=== PATIENT | male | born 1995 | race Caucasian/White ===

== ENCOUNTER 2018-07-11 21:32 | Emergency (ER) | payer OTHER, SELFPAY ==
[2018-07-11 21:34] VITALS: BP 137/90; PULSE 107; RESP 18; TEMP 37; O2SAT 99; BMI 43.9
--- NOTE | 2018-07-11 21:48 | CT_ITS ---
STUDY: CT BRAIN WITHOUT CONTRAST REASON FOR EXAM: Male, 23 years old. Dizziness and fall. RADIATION DOSAGE (If Supplied By Facility): CTDIvol = ( 44.99 ) mGy, DLP = ( 745.49 ) mGycm TECHNIQUE: Transaxial CT imaging of the brain was performed without administration of intravenous contrast material. Individualized dose optimization techniques were used for this CT. COMPARISON: None. FINDINGS: Normal soft tissue structures. Normal calvarium. Within the right frontal lobe there is a well-circumscribed low-attenuation 1.2 x 1.2 x 1.1 cm rounded focus. Normal size ventricles and extra-axial spaces for the patient's age. Normal white matter tracts of the cerebral hemispheres. Normal basal ganglia and thalami. Normal brainstem. Normal cerebellum. There is no intracranial hemorrhage. There are no findings of an acute ischemic infarction. Normal visualized paranasal sinuses. There is opacification of the left mastoid air cells. CT/Brain/Head without Contrast IMPRESSION: No acute intracranial process. 1.2 x 1.2 x 1.1 cm round low-attenuation focus within the right frontal lobe which may reflect an intracranial lipoma, consider MRI for further characterization. Opacification of the left mastoid air cells consistent with a history of mastoiditis. Electronically Signed: Anette Ibarra MD at 22:47 EST Tel , Service support ,
--- NOTE | 2018-07-11 21:49 | ED.VISSUMM ---
- ER Visit Summary Date of Service: 07/11/18 Chief Complaint: Dizziness, lightheaded, fall History of Present Illness: The patient is a 23 M with history of Down syndrome presents to the emergency department with approximately 24 hours of dizziness. The patient describes a sensation of motion that is worse when he moves his head. He states that he felt unsteady on his feet. Today, he changed positions and fell. He struck the back of his head but did not lose consciousness. Since that time, he has had a mild headache. He has never had symptoms like this before. He denies any chest pain. He denies any recent upper respiratory illness. The patient is otherwise healthy. He takes no daily medications. He has no history of seizure. There is no history of stroke. Physical Examination: Vital signs reviewed General: Well-nourished, well-developed Head: Normocephalic, atraumatic Eyes: Pupils equal and reactive, extraocular muscles intact Neck, supple, no lymphadenopathy Heart: Regular rate and rhythm Respiratory: No distress, clear bilaterally Abdomen: Soft, nontender, nondistended, no peritoneal signs Back: Nontender Extremities: Nontender, no edema, no cords Skin: Normal color no rash Neuro: Alert and oriented, no focal or lateralizing deficits, rapid beating nystagmus bilaterally that does extinguish, no difficulties with cerebellar activities Test Results: [] Emergency Department Course and Treatment: The patient presents with vertigo. He has no mastoid tenderness. His TMs are clear bilaterally. He was given IV fluids and meclizine. He had marked improvement of his symptoms. Screening labs are obtained were unremarkable. With the patient's history of Down syndrome, I did obtain a CT of his head. There is questionable lipoma, but no acute process. I do feel that this is more likely chronic. There is also question of mastoiditis but if anything, I do feel that this is chronic as he has had no evidence of ear infection and no tenderness. He does have evidence of infection on the right, but this is red on the left. He will be started on Augmentin. At this time, with the patient's improvement I do feel that he is safe for outpatient follow-up. He will be prescribed meclizine. He was counseled on concerning symptoms and reasons to return. The patient will be discharged home. Treatment Plan: [] Disposition: Discharge Impression: Vertigo This note was generated with [employer] dictation software. It may contain incorrect words, spelling, and punctuation that were not noted in review of the chart prior to signing ED Disposition - Plan for ED Patient: Chief Complaint: Fall Instructions: ED Vertigo Unspecified Prescriptions: Amox/Clavulanate Tablet [Augmentin Tablet] 875 mg PO Q12H #20 tab Meclizine HCl [Antivert] 25 mg PO TID PRN PRN #30 tab PRN Reason: Dizziness Referrals: [facility] Doctor,Out of [NON-STAFF] -
[2018-07-11 21:58] VITALS: PULSE 118; RESP 18; O2SAT 100
[2018-07-11] MEDS: Meclizine HCl 25 MG Tablet PO (22:01)
[2018-07-11] MEDS: Ondansetron 4 MG/2 ML Vial IV (22:08)
[2018-07-11] MEDS: 0.9% Normal Saline 1,000 ML 1000 ML IV (22:08)
[2018-07-11 22:24] LABS: Absolute Neutrophil Count 6.6 X10^3/uL (2.0-7.7); Basophil# 0.06 X10^3/uL; Basophil% 0.6 % (0-1); Eosinophil# 0.04 X10^3/uL; Eosinophils% 0.4 % (0-5); Hematocrit 44.7 % (40-54); Hemoglobin 14.9 g/dl (13.0-16.5); Mean Corp Hgb Conc 33.3 g/gl (32-36); Mean Corpuscular Hgb 34.1 pg (27.0-32.0); Mean Corpuscular Volume 102.3 fL (80-94); Mean Platelet Vol. 9.4 fl (6.2-12.0); Monocyte# 0.89 X10^3/uL; Monocyte% 8.6 % (0-10); Neutrophil # 6.55 X10^3/uL (2.7-7.7); Neutrophil % 63.2 % (47-70); Platelet Count 331 K/mm3 (150-450); RBC Distribution Width CV 13.6 % (11.6-14.6); RBC Distribution Width SD 50.9 fl (35.1-43.9); Red Blood Count 4.37 M/mm3 (4.6-6.2); White Blood Count 10.4 K/mm3 (4.4-11.0)
[2018-07-11 22:25] LABS: POSITIVE COUNT NO; POSITIVE DIFFERENTIAL NO; POSITIVE MORPHOLOGY NO
[2018-07-11 22:30] LABS: Anion Gap 5 (5-15); BUN 22 mg/dL (7-18); BUN/Creat Ratio 19.1 RATIO (10-20); Calcium,Total 8.7 mg/dL (8.5-10.1); Chloride 104 mmol/L (98-107); Creatinine, Serum 1.15 mg/dL (0.70-1.30); EST Glomerular Filtration Rate 85 mL/min (>60); Est Glom Filt Rate - Afr Amer 103 mL/min (>60); Estimated Creatinine Clearance 81.78 ml/min; Glucose 122 mg/dL (74-106); Potassium 3.9 mmol/L (3.5-5.1); Sodium Level 139 mmol/L (136-145)
[2018-07-11] MEDS: Amox/Clavulanate 875 MG Tablet PO (23:29)
[2018-07-11 23:32] VITALS: BP 121/67; PULSE 122; RESP 15; O2SAT 98
--- OUTSIDE RECORDS SUMMARY | 2018-08-23 17:32 | XMS RPT_ITS ---
:1995 Author Organization [facility] Care Team Providers Name Role Phone Alton Kendrick Attending Unavailable Primay Care Physicia, No Primary Care Unavailable PROBLEMS PROBLEMS DATE TYPE CONDITION / CODE ATTENDING STATUS SOURCE 07/26/2018 Unknown R42 - Dizziness Alton Kendrick Active [facility] and giddiness / Community R42(ICD-10) Hospital Repository PROCEDURES PROCEDURES No Procedure Records FoundRESULTS RESULTS EMERGENCY DEPARTMENT Observed: 07/11/2018 Status: F Source: [place] SUMMARY 11:12 PM [facility] REPOSITORY [facility] Medical Records Department [address] [place] [address] Emergency Department Summary 07/11/18 2149 MR#: [id number] Acct: [id number] Name: KRYSTINA WEINSTEIN Rep #: [id number] : 1995 23 From: Alton Kendrick MD PCP: Care Physician, No Primary Status: REG ER - ER Visit Summary Date of Service: 07/11/18 Chief Complaint: Dizziness, lightheaded, fall History of Present Illness: The patient is a 23 M with history of Down syndrome presents to the emergency department with approximately 24 hours of dizziness. The patient describes a sensation of motion that is worse when he moves his head. He states that he felt unsteady on his feet. Today, he changed positions and fell. He struck the back of his head but did not lose consciousness. Since that time, he has had a mild headache. He has never had symptoms like this before. He denies any chest pain. He denies any recent upper respiratory illness. The patient is otherwise healthy. He takes no daily medications. He has no history of seizure. There is no history of stroke. Physical Examination: Vital signs reviewed General: Well-nourished, well-developed Head: Normocephalic, atraumatic Eyes: Pupils equal and reactive, extraocular muscles intact Neck, supple, no lymphadenopathy Heart: Regular rate and rhythm Respiratory: No distress, clear bilaterally Abdomen: Soft, nontender, nondistended, no peritoneal signs Back: Nontender Extremities: Nontender, no edema, no cords Skin: Normal color no rash Neuro: Alert and oriented, no focal or lateralizing deficits, rapid beating nystagmus bilaterally that does extinguish, no difficulties with cerebellar activities Test Results: [] Emergency Department Course and Treatment: The patient presents with vertigo. He has no mastoid tenderness. His TMs are clear bilaterally. He was given IV fluids and meclizine. He had marked improvement of his symptoms. Screening labs are obtained were unremarkable. With the patient's history of Down syndrome, I did obtain a CT of his head. There is questionable lipoma, but no acute process. I do feel that this is more likely chronic. There is also question of mastoiditis but if anything, I do feel that this is chronic as he has had no evidence of ear infection and no tenderness. He does have evidence of infection on the right, but this is red on the left. He will be started on Augmentin. At this time, with the patient's improvement I do feel that he is safe for outpatient follow-up. He will be prescribed meclizine. He was counseled on concerning symptoms and reasons to return. The patient will be discharged home. Treatment Plan: [] Disposition: Discharge Impression: Vertigo This note was generated with [employer] dictation software. It may contain incorrect words, spelling, and punctuation that were not noted in review of the chart prior to signing ED Disposition - Plan for ED Patient: Chief Complaint: Fall Instructions: ED Vertigo Unspecified Prescriptions: Amox/Clavulanate Tablet [Augmentin Tablet] 875 mg PO Q12H #20 tab Meclizine HCl [Antivert] 25 mg PO TID PRN PRN #30 tab PRN Reason: Dizziness Referrals: [facility] Doctor,Out of [NON-STAFF] - What to do if you have Problems For any increased pain, shortness of breath, bleeding, nausea or vomiting, chest pain, or any unexpected problems, contact your Primary Care Provider. Call [facility] ([phone]) or report to the closest Emergency Room. Call 911 if necessary. 07/11/18 3411 <Electronically signed by Alton Kendrick MD> Date Alton Kendrick MD Cosigner Signature (If Indicated): Date CC: No Primary Care Physician CBC W/DIFF, AUTOMATED Collected: 07/11/2018 Status: F Source: ALISHA 10:10 PM [facility] REPOSITORY TYPE CODE TESTS RESULT OUT OF RANGE REFERENCE UNITS LAB L100.1000 4.4-11.0 K/mm3 Normal WBC 10.4 LAB L100.1200 4.6-6.2 M/mm3 Low RBC 4.37 LAB L100.1300 13.0-16.5 g/dl Normal HGB 14.9 LAB L100.1400 40-54 % Normal HCT 44.7 LAB L100.1500 80-94 fL High MCV 102.3 LAB L100.1600 27.0-32.0 pg High MCH 34.1 LAB L100.1700 32-36 g/gl Normal MCHC 33.3 LAB L100.1810 11.6-14.6 % Normal RDW CV 13.6 LAB L100.1820 35.1-43.9 fl High RDW SD 50.9 LAB L100.1900 150-450 K/mm3 Normal PLT 331 LAB L100.2000 6.2-12.0 fl Normal MPV 9.4 LAB L100.2100 47-70 % Normal NEUT% 63.2 LAB L100.2200 19-41 % Normal LY% 27.0 LAB L100.2300 0-10 % Normal MONO% 8.6 LAB L100.2400 0-5 % Normal EO% 0.4 LAB L100.2500 0-1 % Normal BASO% 0.6 LAB L100.2550 0.0-0.9 % Normal IM GRAN % 0.200 Result Comment: IG% - Immature Granulocytes (promyelocytes, myelocytes and metamyelocytes) > 1% indicates that a LEFT SHIFT is Present. LAB L100.2620 2.0-7.7 X10 3/uL Normal Absolute Neut 6.6 LAB L100.2720 0.83-4.51 X10 3/ul Normal Absolute Lymph 2.80 Performed By: #### L100.0100 #### [facility] [address] [place], [address] BASIC METABOLIC Collected: 07/11/2018 Status: F Source: [place] PROFILE (BMP) 10:10 PM [facility] REPOSITORY TYPE CODE TESTS RESULT OUT OF RANGE REFERENCE UNITS LAB L501.0100 74-106 mg/dL High GLU 122 Result Comment: Fasting Glucose result from 100 to 125 mg/dL suggests IMPAIRED HOMEOSTASIS per A.D.A. criteria. Please note revised GLUCOSE reference range effective 2017. LAB L501.1000 7-18 mg/dL High BUN 22 LAB L501.1100 0.70-1.30 mg/dL Normal CREAT,SERUM 1.15 Result Comment: The validity of the calculated GFR AND GFRAA in patients over 70 years has not been determined. Clinical correlation is essential. LAB L501.1110 >60 mL/min Normal EST GFR 85 Result Comment: Non- GFR Calc LAB L501.1115 >60 mL/min Normal EST GFR - AA 103 Result Comment: GFR Calc LAB L501.1255 ml/min Normal Estimated CRCL 81.78 LAB L501.1300 10-20 RATIO Normal BUN/CRE 19.1 LAB L501.2200 8.5-10 mg/dL Normal .1 CA 8.7 LAB L501.5300 136-14 mmol/L Normal 5 NA 139 LAB L501.5600 3.5-5. mmol/L Normal 1 K 3.9 LAB L501.5900 98-107 mmol/L Normal CL 104 LAB L501.6100 21.0-3 mmol/L Normal 2.0 CO2 30.0 LAB L501.6200 5-15 Normal GAP 5 Performed By: #### L500.2500 #### [facility] [address] [place], [address] BRAIN/HEAD WITHOUT Observed: 07/11/2018 Status: F Source: [place] CONTRAST 9:49 PM [facility] REPOSITORY [facility] Imaging Services [address] [place] [address] Brain/Head without Contrast MR#: [id number] Acct: [id number] Name: KRYSTINA WEINSTEIN Rep #: [id number] : 1995 M 23 From: Anette Ibarra MD PCP: Care Physician, No Primary Status: [facility] Study: Brain/Head without Contrast Date of Exam: 07/11/18 Exam# [id number] Ordering Dr: Alton Kendrick MD STUDY: CT BRAIN WITHOUT CONTRAST REASON FOR EXAM: Male, 23 years old. Dizziness and fall. RADIATION DOSAGE (If Supplied By Facility): CTDIvol = ( 44.99 ) mGy, DLP = ( 745.49 ) mGycm TECHNIQUE: Transaxial CT imaging of the brain was performed without administration of intravenous contrast material. Individualized dose optimization techniques were used for this CT. COMPARISON: None. FINDINGS: Normal soft tissue structures. Normal calvarium. Within the right frontal lobe there is a well-circumscribed low-attenuation 1.2 x 1.2 x 1.1 cm rounded focus. Normal size ventricles and extra-axial spaces for the patient's age. Normal white matter tracts of the cerebral hemispheres. Normal basal ganglia and thalami. Normal brainstem. Normal cerebellum. There is no intracranial hemorrhage. There are no findings of an acute ischemic infarction. Normal visualized paranasal sinuses. There is opacification of the left mastoid air cells. CT/Brain/Head without Contrast IMPRESSION: No acute intracranial process. 1.2 x 1.2 x 1.1 cm round low-attenuation focus within the right frontal lobe which may reflect an intracranial lipoma, consider MRI for further characterization. Opacification of the left mastoid air cells consistent with a history of mastoiditis. Electronically Signed: Anette Ibarra MD at 22:47 EST Tel , Service support , CC: No Primary Care Physician; Alton Kendrick MD Police [employer] Dispatcher: Signed ALLERGIES ALLERGIES DATE TYPE / CODE NAME / CODE REACTION SEVERITY SOURCE 07/11/2018 Drug No Known Unknown [facility] Allergy/4160 Allergies/F00 Hospital 85297(SNOMED [id number](RXNOR Repository CT) M) ENCOUNTERS ENCOUNTERS ADMIT/DISCHARGE ACCOUNT ADMITTING ENCOUNTER LOCATION SOURCE NUMBER CLASS 07/11/2018/ [id number] Emergency Alisha Al[facility] ing:ED Repository PAYERS PAYERS ENCOUNTER GUARANTOR PAYER SUBSCRIBER SOURCE 07/11/2018 KRYSTINA Armstrong Primary KRYSTINA Snow [id number] TP Insurance:NICHOLE SCHLABACHDOB: Community [facility] [id number] Number: Repository [place], [place] [address]Znn: Effective Date: () [address], [place] [address]QS: 07/11/2018 Secondary NOT GIVENUNK [facility] Insurance:SELF PAY [facility] Number: Effective Repository Date:2018-07-11
== END 2018-07-11 23:33 | disposition home or self-care (01) ==
LOC: ED 22:17
PROVIDERS: Emergency Provider Emergency Medicine
DX: R42 Dizziness and giddiness (principal); S09.90XA Unspecified injury of head, initial encounter; W01.10XA Fall on same level from slipping, tripping and stumbling with subsequent striking against unspecified object, initial encounter; Y93.9 Activity, unspecified; Y92.9 Unspecified place or not applicable; Y99.9 Unspecified external cause status; Q90.9 Down syndrome, unspecified
CPT/HCPCS: 70450; 80048; 85025; 96361; 96374; 99285; J7030; A4216; J2405

== ENCOUNTER 2024-08-02 12:11 | Inpatient (IN) | payer OTHER, SELFPAY ==
[2024-08-02 12:13] VITALS: BP 142/83; PULSE 115; RESP 18; TEMP 36.6; O2SAT 98; BMI 47.2
--- NOTE | 2024-08-02 12:35 | EX.ED.DYSGE1 ---
HPI History of Present Illness Chief Complaint: Constipation Informant: patient and parent Narrative Narrative: 29-year-old Down's patient presenting to the emergency room with constipation. Mom states that the patient has not been to primary care for at least 5 years. Mom states that patient has not had a bowel movement for about 4 days. He has had decreased p.o. intake but is drinking water. Mom notes urinating normally. Patient just will not eat much. Mom states the patient does not take any medications. No reported fevers. Chronic cough. Mom notes a weight loss over the past 2 weeks. [facility] Medical History (Updated 08/02/24 @ 14:[address] Miguel Angel Corea, ) Trisomy 21 Home Medications ?Medication ?Instructions ?Recorded ?Last Taken ?Type NK 08/02/24 Unknown History Allergy/AdvReac Type Severity Reaction Status Date / Time No Known Allergies Allergy Verified 08/02/24 12:17 Social History Smoking Status: Never smoker ROS ROS ED Constitutional Constitutional ED: Reports weight loss; Denies chills or fever(s) Eyes Eyes: Denies change in vision or diplopia ENT ENT ED: Denies ear pain, rhinorrhea or sore throat Cardiovascular Cardiovascular: Denies chest pain, orthopnea, palpitations or racing heartbeat Respiratory/Chest Respiratory/Chest: Denies cough, dyspnea or orthopnea Gastrointestinal Gastrointestinal: Reports constipation; Denies abdominal pain, diarrhea, nausea or vomiting Genitourinary Genitourinary ED: Reports urinary frequency; Denies dysuria or hematuria Musculoskeletal Musculoskeletal: Denies arthralgias or myalgias Integumentary Denies abscess or rash Neurologic Neurologic: Denies headache(s) or weakness Psychiatric Psychiatric: Denies anxiety, depression, suicidal ideation or suicidal thoughts Endocrine Endocrinology: Reports polydipsia and polyuria; Denies polyphagia Allergic/Immunologic Allergic/Immunologic ED: Denies mouth swelling, tongue swelling or urticaria EXAM Physical Exam Const Vital Signs: 08/02/24 12:13 08/02/24 14:00 Temperature 98 F Temperature Source Temporal Pulse Rate 115 H 112 H Respiratory Rate 18 17 Blood Pressure 142/83 H 132/90 H Blood Pressure Mean 102 102 Pulse Ox 98 98 Oxygen Delivery Method Room Air Positive well nourished, well developed and obese General Appearance ED: well developed and NAD Nutritional Appearance: obese HEENT Reports normocephalic, head/scalp atraumatic and dry mucous membranes Mouth ED: Yes dry mucous membranes Mouth: dry mucous membranes Eyes PERRL and EOMs intact bilaterally Neck no lymphadenopathy, supple and no JVD Resp normal respiratory effort and clear to auscultation bilaterally Cardio regular rate, regular rhythm and no murmurs Rate: tachycardic GI normal to inspection, nondistended, normoactive bowel sounds and non-tender Palpation: soft Back/Spine no CVA tenderness and normal ROM Extremity normal to inspection General Extremety ED: Negative for edema General Extremity: Negative for edema Neuro CN's II-XII intact bilaterally Sensorium / Orientation: alert Motor Exam: strength 5/5 throughout Psych Psych Narrative: Unable to assess. Skin no rashes or lesions noted and no wounds MDM MDM MDM Narrative Medical decision making narrative: Differential diagnosis includes but not limited to constipation volvulus bowel obstruction dehydration acute kidney injury electrolyte abnormality acid-base disturbance diabetes cardiac dysrhythmia Patient's Accu-Chek is reading high. BMP reveals a blood sugar of 570 CO2 22 lipase 13 AST 43 alk phos 131 white count 9 hemoglobin 16.6 urinalysis no obvious infection acetone level is large VBG does not appear to have significant acid-base disturbance. Patient received 2 L of IV fluids. His EKG is a sinus tachycardia at a rate of 108 bpm. Abdomen remains soft and nontender with normal bowel sounds. I will be speaking with the hospitalist regarding admission. Parents were updated and are comfortable with this plan. History & Record Review Discussion w/independent historian: Patient and Family Lab Data Attestation: I reviewed the patient's lab results. Labs: Laboratory Results - last 24 hr 08/02/24 08/02/24 08/02/24 12:37 13:00 13:50 WBC 9.0 RBC 4.81 Hgb 16.6 H Hct 50.1 MCV 104.2 H MCH 34.5 H MCHC 33.1 RDW Std Deviation 51.6 H RDW Coeff of Ivan 13.5 Plt Count 306 MPV 10.6 Immature Gran % (Auto) 0.300 Neut % (Auto) 67.1 Lymph % (Auto) 24.9 Crane % (Auto) 6.7 Eos % (Auto) 0.2 Baso % (Auto) 0.8 Absolute Neuts (auto) 6.0 Absolute Lymphs (auto) 2.24 Nucleated RBC % 0 Sodium 136 Potassium 4.4 Chloride 100 Carbon Dioxide 22.0 Anion Gap 15 BUN 11 Creatinine 1.54 H Estim Creat Clear Calc 81.09 Est GFR (MDRD) Af Amer 70 Est GFR (MDRD) Non-Af 58 L BUN/Creatinine Ratio 7.1 L Glucose 570 H* Calcium 9.7 Magnesium 2.2 Total Bilirubin 0.90 Direct Bilirubin 0.12 AST 43 H ALT 49 Alkaline Phosphatase 131 H Total Protein 8.6 H Albumin 3.5 Globulin 5.1 H Lipase 13 Urine Color Yellow Urine Clarity Sl. Cloudy Urine pH 6.0 Ur Specific [place] 1.015 Urine Protein Negative Urine Glucose (UA) 1000 H Urine Ketones 150 A* Urine Occult Blood Negative Urine Nitrite Negative Urine Bilirubin Negative Urine Urobilinogen Normal Ur Leukocyte Esterase 25 H Urine RBC 0-5 SEEN Urine WBC 0-5 SEEN Ur Squamous Epith Cells 0 SEEN Urine Bacteria 0 SEEN Urine Mucus 0 SEEN Acetone Level LARGE H POC Glucose > 500 H* ABG Data ABG results: ABG 08/02/24 13:20 Specimen Type TIA Sample Site Not entered VBG pH 7.26 L VBG pO2 36 VBG HCO3 22 VBG Total CO2 24 VBG O2 Sat (Calc) 60 VBG Base Excess -5 L POC Mix VBG pCO2 Pt Tmp 49.8 O2 Delivery Device Not entered EKG Initial EKG: Attestation: I personally reviewed and interpreted this EKG as follows: Comments: Sinus tachycardia ventricular rate of 108 bpm Management Discussion w/another healthcare provider: Hospitalist (Dr. Collado) Discharge Plan Dx/Rx/DC Orders Clinical Impression: Diabetes mellitus, new onset, VEGA (acute kidney injury), Acute dehydration, Constipation Disposition Disposition: [facility]
--- NOTE | 2024-08-02 12:43 | EKG12_ITS ---
Test Reason : Blood Pressure : */* mmHG Vent. Rate : 108 BPM Atrial Rate : 108 BPM P-R Int : 156 ms QRS Dur : 72 ms QT Int : 298 ms P-R-T Axes : * 264 265 degrees QTcB Int : 399 ms Sinus tachycardia Right superior axis deviation Nonspecific T wave abnormality Abnormal ECG Confirmed by NICK BECERRA, ISABEL ([id number]), manager editorial LEONEL FARMER ([id number]) on 08/03/2024 10:57:21 AM Referred By: Confirmed By: ISABEL ROMERO MD
[2024-08-02] MEDS: 0.9% Normal Saline (1000mL) 1,000 ML 999 ML IV ×2 (12:49→13:58)
--- NOTE | 2024-08-02 12:50 | RAD_ITS ---
STUDY: X-RAY CHEST REASON FOR EXAM: Male, 29 years old. cough TECHNIQUE: Single AP portable view of the chest. COMPARISON: None. FINDINGS: The lungs are clear and expanded. There is no demonstrated pleural abnormality. Normal size heart. Normal mediastinum and janeen. Normal visualized pulmonary arteries. Normal visualized aortic arch and descending thoracic aorta. Normal visualized thoracic spine. Normal visualized ribs, clavicles, and shoulders. There is no demonstrated abnormality of the visualized soft tissue structures of the upper abdomen. RAD/Chest 1 View (Portable) IMPRESSION: Normal x-ray examination of the chest. Electronically Signed: Oziel Dorado MD at 14:30 EST ,
[2024-08-02 12:55] LABS: Bedside Glucose > 500 mg/dL (74-106)
[2024-08-02 13:10] LABS: Absolute Lymphocyte Count 2.24 X10^3/uL (0.83-4.51); Basophil# 0.07 X10^3/uL; Basophil% 0.8 % (0-1); Eosinophil# 0.02 X10^3/uL; Eosinophils% 0.2 % (0-5); Hematocrit 50.1 % (40-54); Hemoglobin 16.6 g/dL (13.0-16.5); Lymphocyte # 2.24 X10^3/ul (0.83-4.51); Lymphocyte % 24.9 % (19-41); Mean Corp Hgb Conc 33.1 g/dL (32-36); Mean Corpuscular Hgb 34.5 pg (27.0-32.0); Mean Corpuscular Volume 104.2 fL (80-94); Mean Platelet Vol. 10.6 fl (6.2-12.0); Monocyte% 6.7 % (0-10); NRBC Flagged by Analyzer 0 % (0-5); Neutrophil # 6.03 X10^3/uL (2.7-7.7); Neutrophil % 67.1 % (47-70); Platelet Count 306 K/mm3 (150-450); RBC Distribution Width CV 13.5 % (11.6-14.6); RBC Distribution Width SD 51.6 fl (35.1-43.9); Red Blood Count 4.81 M/mm3 (4.6-6.2)
[2024-08-02 13:23] LABS: Blood Gas Specimen Type VEN; O2 Delivery Device Not entered; SITE Not entered; VBG BASE EXCESS -5 mmol/L (-1.0-3.5); VBG Bicarbonate 22 mmol/L (22-26); VBG PO2 36 mmHg (25-40); VBG SO2 60 % (50-70); VBG TCO2 24 mmol/L (23-33); VBG pCO2 49.8 mmHg (41-51); VBG pH 7.26 (7.32-7.42)
[2024-08-02 13:39] LABS: AST(SGOT) 43 U/L (15-37); Alanine Aminotransfer ALT/SGPT 49 U/L (16-61); Albumin, Serum 3.5 g/dL (3.2-5.0); Alkaline Phosphatase 131 U/L (45-117); Anion Gap 15 (5-15); BUN 11 mg/dL (7-18); BUN/Creat Ratio 7.1 RATIO (10-20); Bilirubin, Direct 0.12 mg/dL (0.00-0.30); Calcium,Total 9.7 mg/dL (8.5-10.1); Chloride 100 mmol/L (98-107); Creatinine, Serum 1.54 mg/dL (0.70-1.30); EST Glomerular Filtration Rate 58 mL/min (>60); Est Glom Filt Rate - Afr Amer 70 mL/min (>60); Estimated Creatinine Clearance 81.09 ml/min; Globulin 5.1 g/dL (2.2-4.2); Glucose 570 mg/dL (74-106); Lipase 13 U/L (13-75); Magnesium 2.2 mg/dL (1.6-2.6); Potassium 4.4 mmol/L (3.5-5.1); Protein, Total 8.6 g/dL (6.4-8.2); Sodium Level 136 mmol/L (136-145)
[2024-08-02 13:58] LABS: Bacteria 0 SEEN /hpf (None Seen); Mucous, Urine 0 SEEN /hpf (<or=2+); Squamous Epithelial Cells - UA 0 SEEN /hpf (0-5)
[2024-08-02 14:00] VITALS: BP 132/90; PULSE 112; RESP 17; O2SAT 98
[2024-08-02 14:05] LABS: Color, Urine Yellow (Yellow); Glucose, Dipstick 1000 mg/dl (Normal); Leukocyte Esterase-Dipstick 25 /ul (Negative); Nitrite-Dipstick Negative (Negative); Occult Blood-Urine Negative /ul (Negative); Protein-Dipstick Negative (Negative); Specific Gravity, Urine 1.015 (1.002-1.030); Urine Bilirubin Dipstick Negative (Negative); Urine Clarity Sl. Cloudy (Clear); Urine Urobilinogen Normal (Normal)
[2024-08-02 14:11] LABS: Ketone-Dipstick 150 mg/dl (Negative)
[2024-08-02 14:12] LABS: Red Blood Cells-Urine 0-5 SEEN /hpf (0-5); White Blood Cells 0-5 SEEN /hpf (0-5)
[2024-08-02 14:28] LABS: Bedside Glucose 480 mg/dL (74-106)
--- NOTE | 2024-08-02 14:33 | HP.PCM.HOS_ITS ---
HPI - General General Date of Admission: 08/02/24 Date of Service: 08/02/24 Chief Complaint: Hyperglycemia, constipation HPI Narrative KRYSTINA WEINSTEIN, is a 29 M with history of Down syndrome presented [facility] ED 08/02/2024 with his parents for concern for constipation. He has not been to primary care physician in 5 years. Mom endorsed he has not had a bowel movement in 4 days and has had decreased food intake but is drinking a lot of water and urinating normally. Patient has also had weight loss over the past 2 weeks. In the ED glucose was 570 on BMP but patient with anion gap within normal limits and normal bicarb, VBG showed slightly low pH of 7.26 but no abnormalities of bicarb or CO2. Patient did have ketones and acetone but did not have high anion gap metabolic acidosis that would be consistent with DKA. Additionally patient with creatinine of 1.54 and appeared clinically dehydrated and was slightly tachycardic. He is Yazidism and has Down syndrome and does not regularly follow with a physician, this in addition to his significantly elevated glucose and likely need for insulin hospitalist contacted for admission. Family not at bedside during my evaluation and patient unable to give significant history so current known history as above. [facility] Medical History (Updated 08/02/24 @ 14:[address] Miguel Angel Corea DO) Trisomy 21 Home Medications ?Medication ?Instructions ?Recorded ?Last Taken ?Type NK 08/02/24 Unknown History Allergy/AdvReac Type Severity Reaction Status Date / Time No Known Allergies Allergy Verified 08/02/24 12:17 Social History Smoking Status: Never smoker ROS ROS Narrative Unable to obtain, patient will not verbalize intermittently but not directly answer questions Vital Signs Vital Signs Vital Signs: 08/02/24 12:13 08/02/24 14:00 Temperature 98 F Temperature Source Temporal Pulse Rate 115 H 112 H Respiratory Rate 18 17 Blood Pressure 142/83 H 132/90 H Blood Pressure Mean 102 102 Pulse Ox 98 98 Oxygen Delivery Method Room Air Weight Weight: 117.027 kg Body Mass Index (BMI) 47.2 Physical Exam Narrative General: Awake and alert HEENT: Atraumatic, dry mucous membranes Eyes: Anicteric, normal conjunctiva, extraocular movements grossly intact Neck: Supple Respiratory: Clear to auscultation bilaterally, normal respiratory effort Cardiovascular: Mild sinus tachycardia GI: Soft, did not appear tender on exam, nondistended, no rebound, guarding, rigidity Extremities: No edema Musculoskeletal: Moving all extremities Neuro: No overt focal neurological deficits Skin: No rashes appreciated Psych: Attempts to be cooperative Results Lab / Micro Data 08/02/24 13:00 08/02/24 13:00 Labs: Laboratory Results - last 24 hr 08/02/24 12:37: POC Glucose > 500 H* 08/02/24 13:00: WBC 9.0, RBC 4.81, Hgb 16.6 H, Hct 50.1, MCV 104.2 H, MCH 34.5 H , MCHC 33.1, RDW Std Deviation 51.6 H, RDW Coeff of Ivan 13.5, Plt Count 306, MPV 10.6, Immature Gran % (Auto) 0.300, Neut % (Auto) 67.1, Lymph % (Auto) 24.9, Stephens % (Auto) 6.7, Eos % (Auto) 0.2, Baso % (Auto) 0.8, Absolute Neuts (auto) 6.0, Absolute Lymphs (auto) 2.24, Nucleated RBC % 0, Sodium 136, Potassium 4.4, Chloride 100, Carbon Dioxide 22.0, Anion Gap 15, BUN 11, Creatinine 1.54 H, Estim Creat Clear Calc 81.09, Est GFR (MDRD) Af Amer 70, Est GFR (MDRD) Non-Af 58 L, BUN/Creatinine Ratio 7.1 L, Glucose 570 H*, Calcium 9.7, Magnesium 2.2, Total Bilirubin 0.90, Direct Bilirubin 0.12, AST 43 H, ALT 49, Alkaline Phosphatase 131 H, Total Protein 8.6 H, Albumin 3.5, Globulin 5.1 H, Lipase 13, Acetone Level LARGE H 08/02/24 13:50: Urine Color Yellow, Urine Clarity Sl. Cloudy, Urine pH 6.0, Ur Specific [place] 1.015, Urine Protein Negative, Urine Glucose (UA) 1000 H, Urine Ketones 150 A*, Urine Occult Blood Negative, Urine Nitrite Negative, Urine Bilirubin Negative, Urine Urobilinogen Normal, Ur Leukocyte Esterase 25 H, Urine RBC 0-5 SEEN, Urine WBC 0-5 SEEN, Ur Squamous Epith Cells 0 SEEN, Urine Bacteria 0 SEEN, Urine Mucus 0 SEEN 08/02/24 14:09: POC Glucose 480 H* ABG Data ABG results: ABG 08/02/24 13:20 Specimen Type TIA Sample Site Not entered VBG pH 7.26 L VBG pO2 36 VBG HCO3 22 VBG Total CO2 24 VBG O2 Sat (Calc) 60 VBG Base Excess -5 L POC Mix VBG pCO2 Pt Tmp 49.8 O2 Delivery Device Not entered Imaging Radiology Impression Chest X-Ray 08/02/24 12:50 IMPRESSION: Normal x-ray examination of the chest. Electronically Signed: Oziel Dorado MD at 14:30 EST Reading Location ID and State: [facility] / [place] , Service support , Assessment & Plan Assessment/Plan (1) Diabetes mellitus, new onset: PLAN: Plan # Significant hyperglycemia, new onset diabetes mellitus suspect type II -q4 glucose checks with coverage until glucose improves then ACHS -Will repeat a timed BMP -Continue aggressive IVF -Calorie controlled carb consistent diet -A1c sent, likely will need long acting but unclear requirements at this time -Monitor I's and O's #VEGA vs CKD -Creatinine previously 1.15 however that was several years ago, today's creatinine 1.54 -Do suspect VEGA given patient appears significantly volume depleted -Avoid nephrotoxic agents -IVF -Repeat in a.m. #Constipation -Abdominal exam benign -Do not think patient needs further abdominal imaging at this time -Will schedule bowel regimen #Morbid obesity -BMI documented as 47.2 kg/m? at time of admission -Complicates treatment, prognosis, outcomes -Recommend weight loss and lifestyle changes # Down syndrome -Noted #DVT ppx: Lovenox SQ twice daily Chasity Collado MD Time spent in the patient's overall evaluation, decision-making process, review of diagnostic data, adjustment of management, discussion with other providers, nursing and ancillary staff involved in patient's care documentation, 58 Minutes Charges/Coding Visit Charges Inpatient E&M: 84073 Init Hosp L2
[2024-08-02 14:55] VITALS: BP 139/85; PULSE 118; RESP 14; TEMP 36.6; O2SAT 99
[2024-08-02 15:14] VITALS: BP 127/81; PULSE 111; RESP 16; TEMP 36.7; O2SAT 98; BMI 47.5
[2024-08-02] MEDS: 0.9% Normal Saline (1000mL) 1,000 ML 100 ML IV (15:28)
[2024-08-02 15:32] LABS: Hemoglobin A1c 12.5 % (3.8-5.6)
[2024-08-02] MEDS: Insulin Lispro 100 UNIT/ML VIAL (ADMELOG) 10 UNIT IV (15:56)
[2024-08-02] MEDS: Insulin Lispro 100 UNIT/ML INSULN.PEN SC ×2 (16:15→21:30)
[2024-08-02 16:29] LABS: Bedside Glucose 385 mg/dL (74-106)
[2024-08-02] MEDS: Senna/Docusate Sodium 1 Tablet 2 TABLET PO (21:31)
[2024-08-02] MEDS: Enoxaparin 40 MG/0.4 ML Syringe SC (21:31)
[2024-08-02 22:00] VITALS: BP 125/77; PULSE 111; RESP 18; TEMP 36.5; O2SAT 97
[2024-08-02 22:01] LABS: Bedside Glucose 286 mg/dL (74-106)
[2024-08-03] MEDS: 0.9% Normal Saline (1000mL) 1,000 ML 100 ML IV (01:29)
[2024-08-03] MEDS: Insulin Lispro 100 UNIT/ML INSULN.PEN SC ×2 (01:29→05:50)
[2024-08-03 01:49] LABS: Bedside Glucose 230 mg/dL (74-106)
[2024-08-03 03:34] VITALS: BP 148/81; PULSE 98; RESP 18; TEMP 36.7; O2SAT 97
[2024-08-03 04:35] VITALS: BMI 48.6
[2024-08-03 06:02] LABS: Absolute Neutrophil Count 4.1 X10^3/uL (2.0-7.7); Basophil# 0.08 X10^3/uL; Eosinophil# 0.06 X10^3/uL; Eosinophils% 0.7 % (0-5); Hematocrit 42.1 % (40-54); Hemoglobin 14.1 g/dL (13.0-16.5); Lymphocyte % 39.9 % (19-41); Mean Corp Hgb Conc 33.5 g/dL (32-36); Mean Corpuscular Hgb 35.4 pg (27.0-32.0); Mean Corpuscular Volume 105.8 fL (80-94); Mean Platelet Vol. 10.2 fl (6.2-12.0); Monocyte# 0.74 X10^3/uL; Monocyte% 8.9 % (0-10); NRBC Flagged by Analyzer 0 % (0-5); Neutrophil # 4.09 X10^3/uL (2.7-7.7); Neutrophil % 49.4 % (47-70); Platelet Count 242 K/mm3 (150-450); RBC Distribution Width CV 13.4 % (11.6-14.6); RBC Distribution Width SD 52.5 fl (35.1-43.9); Red Blood Count 3.98 M/mm3 (4.6-6.2); White Blood Count 8.3 K/mm3 (4.4-11.0)
[2024-08-03 06:15] LABS: Bedside Glucose 262 mg/dL (74-106)
[2024-08-03 06:52] LABS: Anion Gap 9 (5-15); BUN 9 mg/dL (7-18); BUN/Creat Ratio 7.8 RATIO (10-20); Calcium,Total 8.6 mg/dL (8.5-10.1); Chloride 106 mmol/L (98-107); Creatinine, Serum 1.15 mg/dL (0.70-1.30); EST Glomerular Filtration Rate 81 mL/min (>60); Est Glom Filt Rate - Afr Amer 98 mL/min (>60); Estimated Creatinine Clearance 110.54 ml/min; Glucose 314 mg/dL (74-106); Potassium 3.5 mmol/L (3.5-5.1); Sodium Level 136 mmol/L (136-145)
--- NOTE | 2024-08-03 08:04 | PCM.PN.HOSP ---
Reason for Visit Reason for Visit: Hyperglycemia/constipation Subjective Subjective Patient is a 29-year-old white Faith male with a history of Down syndrome who presented to emergency department at [facility] on 08/02/2024 with his parents due to concerns for constipation. Family reported he had not been to a primary care physician for about 5 years and had not had a bowel movement in about 4 days. His mother reported that he has had decreased food intake but is drinking a lot of water and urinating a bit more than normal. He is also had about a 2 pound weight loss over the past 2 weeks prior to presentation. Vital signs on presentation showed a temperature of 98, heart rate 115, blood pressure 142/83, respiratory 18 and pulse ox was 98% on room air. CBC showed erythrocytosis consistent with hemoconcentration but was otherwise unremarkable. Chemistry showed normal electrolytes with an elevated serum creatinine at 1.54 and previous baseline of 1.15, hyperglycemia with a blood sugar of 570, unremarkable liver functions and normal lipase. Chest x-ray was unremarkable. VBG did not show acidosis and he did not have an elevated anion gap however he had some mild ketones and acetone. Given this, he was not treated his DKA was treated with aggressive IV fluids and subcu insulin. He was admitted to the medical floor and placed on subcu insulin along with aggressive IV fluids and a diabetic diet. Today, family and patient report he is feeling better. He is anxious to go home however his blood sugars are still in the 300 range. Hemoglobin A1c was markedly elevated at 12.5 so I think we should try to titrate his insulin prior to getting him home. I did discuss that tomorrow was a possibility. Objective Data Objective Data Vital Signs: Vital Signs Temp Pulse Resp BP Pulse Ox O2 Del Method 98.0 F 98 18 148/81 H 97 Room Air 08/03/24 03:34 08/03/24 03:34 08/03/24 03:34 08/03/24 03:34 08/03/24 03:34 08/03/24 04:14 Oxygen Delivery Method Room Air Weight: 120.6 kg Body Mass Index (BMI) 48.6 Intake & Output: Intake and Output for Last 24 Hours 08/01/24 08/02/24 08/03/24 23:59 23:59 23:59 Intake Total 1999 1800 / 1800 Balance 1999 1800 / 1800 Lab / Micro Data 08/03/24 05:48 08/03/24 05:48 Labs: Laboratory Results - last 24 hr 08/02/24 12:37: POC Glucose > 500 H* 08/02/24 13:00: WBC 9.0, RBC 4.81, Hgb 16.6 H, Hct 50.1, MCV 104.2 H, MCH 34.5 H, MCHC 33.1, RDW Std Deviation 51.6 H, RDW Coeff of Ivan 13.5, Plt Count 306, MPV 10.6, Immature Gran % (Auto) 0.300, Neut % (Auto) 67.1, Lymph % (Auto) 24.9, Banner % (Auto) 6.7, Eos % (Auto) 0.2, Baso % (Auto) 0.8, Absolute Neuts (auto) 6.0, Absolute Lymphs (auto) 2.24, Nucleated RBC % 0, Sodium 136, Potassium 4.4, Chloride 100, Carbon Dioxide 22.0, Anion Gap 15, BUN 11, Creatinine 1.54 H, Estim Creat Clear Calc 81.09, Est GFR (MDRD) Af Amer 70, Est GFR (MDRD) Non-Af 58 L, BUN/Creatinine Ratio 7.1 L, Glucose 570 H*, Calcium 9.7, Magnesium 2.2, Total Bilirubin 0.90, Direct Bilirubin 0.12, AST 43 H, ALT 49, Alkaline Phosphatase 131 H, Total Protein 8.6 H, Albumin 3.5, Globulin 5.1 H, Lipase 13, Acetone Level LARGE H 08/02/24 13:50: Urine Color Yellow, Urine Clarity Sl. Cloudy, Urine pH 6.0, Ur Specific [place] 1.015, Urine Protein Negative, Urine Glucose (UA) 1000 H, Urine Ketones 150 A*, Urine Occult Blood Negative, Urine Nitrite Negative, Urine Bilirubin Negative, Urine Urobilinogen Normal, Ur Leukocyte Esterase 25 H, Urine RBC 0-5 SEEN, Urine WBC 0-5 SEEN, Ur Squamous Epith Cells 0 SEEN, Urine Bacteria 0 SEEN, Urine Mucus 0 SEEN 08/02/24 13:58: Hemoglobin A1c 12.5 H 08/02/24 14:09: POC Glucose 480 H* 08/02/24 15:54: POC Glucose 385 H 08/02/24 21:27: POC Glucose 286 H 08/03/24 01:28: POC Glucose 230 H 08/03/24 05:48: WBC 8.3, RBC 3.98 L, Hgb 14.1, Hct 42.1, MCV 105.8 H, MCH 35.4 H, MCHC 33.5, RDW Std Deviation 52.5 H, RDW Coeff of Ivan 13.4, Plt Count 242, MPV 10.2, Immature Gran % (Auto) 0.100, Neut % (Auto) 49.4, Lymph % (Auto) 39.9, Banner % (Auto) 8.9, Eos % (Auto) 0.7, Baso % (Auto) 1.0, Absolute Neuts (auto) 4.1, Absolute Lymphs (auto) 3.30, Nucleated RBC % 0, Sodium 136, Potassium 3.5, Chloride 106, Carbon Dioxide 21.0, Anion Gap 9, BUN 9, Creatinine 1.15, Estim Creat Clear Calc 110.54, Est GFR (MDRD) Af Amer 98, Est GFR (MDRD) Non-Af 81, BUN/Creatinine Ratio 7.8 L, Glucose 314 H, Calcium 8.6 08/03/24 05:49: POC Glucose 262 H ABG Data ABG results: ABG 08/02/24 13:20 Specimen Type TIA Sample Site Not entered VBG pH 7.26 L VBG pO2 36 VBG HCO3 22 VBG Total CO2 24 VBG O2 Sat (Calc) 60 VBG Base Excess -5 L POC Mix VBG pCO2 Pt Tmp 49.8 O2 Delivery Device Not entered Radiography Diagnostic Testing: Radiology Impression Chest X-Ray 08/02/24 12:50 IMPRESSION: Normal x-ray examination of the chest. Electronically Signed: Oziel Dorado MD at 14:30 EST Reading Location ID and State: [facility] / [place] , Service support , Physical Exam Const alert, no apparent distress and well nourished; Negative for average body habitus or healthy appearing Constitutional Narrative: Morbidly obese, Faith, white male with Down syndrome, lying in bed, appears comfortable, nontoxic, mother and father at bedside HEENT head/scalp atraumatic, moist oral mucous membranes and oropharynx normal HEENT Narrative: Mallampati 4, no thrush Head and Scalp: normocephalic Resp normal respiratory effort, no retractions, no use of accessory muscles and clear to auscultation bilaterally Auscultation: Negative for rales, rhonchi or wheezes Cardio regular rate, regular rhythm, S1 normal heart sound, S2 normal heart sound, no murmurs, no rub, no gallops and no clicks GI normal to inspection, nondistended, normoactive bowel sounds, soft to palpation and non-tender GI Narrative: Large protuberant abdomen Extremity no clubbing, cyanosis or edema Extremity Narrative: Pedal pulses are 2+, no cyanosis or clubbing Neuro moves all extremities and no focal motor deficits Psych Psych Narrative: Very pleasant, interacts appropriately Assessment & Plan Assessment/Plan (1) Constipation: (2) Acute dehydration: (3) VEGA (acute kidney injury): (4) Diabetes mellitus, new onset: PLAN: Plan New onset [id number] -Hemoglobin A1c was 12.5 -Start basal insulin at 30 units twice daily -Prandial insulin at 15 units 3 times daily is my initial dosing of 10 units 3 times daily did not make much difference in his blood sugars -Will hold off on sliding scale for now as we see what titration above does -Could consider initiation of oral medications -Patient/family education with regards to insulin use and glucometer use -Will plan to have patient follow-up with endocrinology after discharge -Start lisinopril for renal protective properties -Discussed side effect of dry cough and angioedema with family so they were aware what to do in the case of these occurring VEGA -Resolved with IV fluid administration -Repeat in lab in a.m. Elevated blood pressure -Goal should be less than 130/80 with diabetes -Start low-dose lisinopril -Patient also some tachycardia so we will start low-dose Coreg -Monitor blood pressures closely Constipation -Continue bowel regimen Morbid obesity -BMI is 48.6 -Complicates treatment, prognosis, outcomes -Recommend weight loss -Would recommend outpatient polysomnography as I highly suspect patient has obstructive sleep apnea at baseline DVT prophylaxis -Continue subcu Lovenox twice daily Charges/Coding Visit Charges Inpatient E&M: 82764 [facility] Hosp L2
[2024-08-03 10:00] VITALS: BP 125/76; PULSE 117; RESP 18; TEMP 36.9; O2SAT 98
[2024-08-03 10:11] LABS: Bedside Glucose 385 mg/dL (74-106)
[2024-08-03] MEDS: Insulin Lispro 100 UNIT/ML INSULN.PEN 10 UNIT SC ×2 (10:30→17:09)
[2024-08-03] MEDS: Lisinopril 5 MG Tablet PO (10:34)
[2024-08-03] MEDS: Senna/Docusate Sodium 1 Tablet 2 TABLET PO ×2 (10:34→21:42)
[2024-08-03] MEDS: Insulin Glargine-YFGN 100 UNIT/ML Pen 30 UNIT SC ×2 (10:35→21:41)
[2024-08-03] MEDS: Enoxaparin 40 MG/0.4 ML Syringe SC ×2 (10:42→21:42)
--- NOTE | 2024-08-03 12:11 | CHAPLAIN ---
Type of Pastoral Visit _x__ Initial Visit ___ Follow-up Visit ___ On-call Visit ___ General Patient Visit ___ Spiritual Assessment ___ Family Conference ___ Bereavement ___ Rapid Response ___ Code Blue ___ Other (describe below) Pastoral Care Referral From ___ Patient _x__ Family ___ Nurse ___ Physician ___ Probation Agent ___ Web Content Specialist ___ Other (describe below) Sacrament/Intervention _x__ Active listening ___ Anointing ___ Jehovah'S Witness ___ Bereavement ___ Communion ___ Romelia exploration ___ _x__ Life review ___ Prayer ___ Reconciliation ___ Sacrament of Sick _x__ Supportive presence ___ Wedding ___ Other (describe below) Pastoral Comments patient has a new diagnosis; pt states that he is okay; pt has limitations but is able to answer questions; however most of the conversation and discussion comes from the father who is present in the room; father of patient is talkative about their lives, past experiences in medical area, and their hope in going home soon;
--- NOTE | 2024-08-03 12:35 | CASEMGMT ---
SANGEETA VIEIRA Face to Face with patient for initial transition planning/care coordination assessment. SANGEETA VIEIRA introduced self and role at [facility]. Patient lying in bed, alert and oriented, parents at bedside. Patient and parents willing to participate in assessment and is able to answer all questions appropriately. Care providers, pharmacy, and demographics verified. Strata: 1 PCP: none, mother states they will schedule at [facility] as that is where she goes Specialists: none Preferred Pharmacy: [facility]; [facility] retail at discharge. Insurance: [facility] Prescription Benefit: none Living Will/HPOA: none LNOK: mother, daughter Living Arrangements: Patient lives with parents in a single story home with no steps to enter. Patient is independent at home. Transportation: driving service DME/HHC: Patient has access to walker at home, will need glucometer at discharge. SANGEETA VIEIRA udpated parents regarding over the counter glucometer at [facility] and pricing. No previous HHC or SNF. Nursing to provide insulin teaching. Patient and parents wishe to discharge home, denies need for home health at this time. Patient and parents state they have no further needs or concerns at this time. CM to follow for discharge planning needs that may arise. Disposition Plan: Patient to discharge home with family support and follow-up plans in place. Will provide script for glucometer at discharge. Rani CHOW, RN, CM
[2024-08-03] MEDS: Insulin Lispro 100 UNIT/ML INSULN.PEN 20 UNIT SC (17:30)
[2024-08-03 17:31] LABS: Bedside Glucose 423 mg/dL (74-106)
[2024-08-03] MEDS: Carvedilol 3.125 MG TABLET PO (21:37)
[2024-08-03 22:00] VITALS: BP 99/57; PULSE 104; RESP 18; TEMP 36.3; O2SAT 95
[2024-08-03 22:07] LABS: Bedside Glucose 300 mg/dL (74-106)
[2024-08-04 03:54] VITALS: BP 100/64; PULSE 93; RESP 18; TEMP 36.1; O2SAT 95
[2024-08-04 07:56] LABS: ALB/GLOB Ratio 0.7 RATIO (0.9-2.4); AST(SGOT) 36 U/L (15-37); Alanine Aminotransfer ALT/SGPT 34 U/L (16-61); Albumin, Serum 2.9 g/dL (3.2-5.0); Alkaline Phosphatase 102 U/L (45-117); Anion Gap 7 (5-15); BUN 10 mg/dL (7-18); BUN/Creat Ratio 8.5 RATIO (10-20); Calcium,Total 8.7 mg/dL (8.5-10.1); Chloride 103 mmol/L (98-107); Creatinine, Serum 1.18 mg/dL (0.70-1.30); EST Glomerular Filtration Rate 79 mL/min (>60); Est Glom Filt Rate - Afr Amer 95 mL/min (>60); Estimated Creatinine Clearance 107.73 ml/min; Globulin 4.3 g/dL (2.2-4.2); Glucose 283 mg/dL (74-106); Magnesium 1.8 mg/dL (1.6-2.6); Phosphorus 3.6 mg/dL (2.5-4.9); Potassium 3.4 mmol/L (3.5-5.1); Protein, Total 7.2 g/dL (6.4-8.2); Sodium Level 136 mmol/L (136-145)
[2024-08-04 08:15] VITALS: BMI 48.4
[2024-08-04] MEDS: Insulin Lispro 100 UNIT/ML INSULN.PEN 20 UNIT SC ×2 (09:01→12:39)
[2024-08-04 09:45] VITALS: BP 105/62; PULSE 95; RESP 17; TEMP 36.8; O2SAT 100
[2024-08-04] MEDS: Lisinopril 2.5 MG Tablet PO (09:49)
[2024-08-04] MEDS: Potassium Chloride Oral Tablet 20 MEQ 40 MEQ PO (09:49)
[2024-08-04 09:50] VITALS: PULSE 99
[2024-08-04] MEDS: Metoprolol Tartrate 25 MG Tablet 12.5 MG PO (09:50)
[2024-08-04] MEDS: Insulin Glargine-YFGN 100 UNIT/ML Pen 35 UNIT SC (09:51)
[2024-08-04] MEDS: Enoxaparin 40 MG/0.4 ML Syringe SC (09:52)
[2024-08-04 10:21] LABS: Bedside Glucose 274 mg/dL (74-106)
[2024-08-04 13:00] LABS: Bedside Glucose 220 mg/dL (74-106)
--- NOTE | 2024-08-04 13:28 | DS.PCM_ITS ---
Providers Date of Admission: 08/03/24 Primary Care Physician: No Primary Care Phys Reason For Visit: SEVERE HYPERGLYCEMIA AND DEHYDRATION Diagnosis Discharge Diagnosis (1) Constipation: Status: Acute Code(s): K59.00 - Constipation, unspecified (2) Acute dehydration: Status: Acute Code(s): E86.0 - Dehydration (3) VEGA (acute kidney injury): Status: Acute Code(s): N17.9 - Acute kidney failure, unspecified (4) Diabetes mellitus, new onset: Status: Acute Code(s): E11.9 - Type 2 diabetes mellitus without complications Medications at Discharge Home Medications insulin glargine-yfgn 100 unit/mL (3 mL) subcutaneous pen 35 unit (0.35 mL) subcut BID #15 mL 08/04/24 insulin lispro 100 unit/mL subcutaneous pen (Humalog KwikPen (U-100) Insulin) 20 unit (0.2 mL) subcut TIDAC #15 mL 08/04/24 lisinopril 2.5 mg tablet 2.5 mg PO DAILY #30 tabs 08/04/24 metoprolol tartrate 25 mg tablet 12.5 mg (1/2 x 25 mg) PO BID #30 tabs 08/04/24 pen needle, diabetic 32 gauge x 1/4 #100 ea 08/04/24 Hospital Course Operations None Procedures EKG and - (Chest x-ray) Summary of Care Provided Minutes Spent on Discharge: 42 Hospital Course: Patient is a 29-year-old white Anglican male with a history of Down syndrome who presented to emergency department at [facility] on 08/02/2024 with his parents due to concerns for constipation. Family reported he had not been to a primary care physician for about 5 years and had not had a bowel movement in about 4 days. His mother reported that he has had decreased food intake but is drinking a lot of water and urinating a bit more than normal. He is also had about a 2 pound weight loss over the past 2 weeks prior to presentation. Vital signs on presentation showed a temperature of 98, heart rate 115, blood pressure 142/83, respiratory 18 and pulse ox was 98% on room air. CBC showed erythrocytosis consistent with hemoconcentration but was otherwise unremarkable. Chemistry showed normal electrolytes with an elevated serum creatinine at 1.54 and previous baseline of 1.15, hyperglycemia with a blood sugar of 570, unremarkable liver functions and normal lipase. Chest x-ray was unremarkable. VBG did not show acidosis and he did not have an elevated anion gap however he had some mild ketones and acetone. Given this, he was not treated his DKA was treated with aggressive IV fluids and subcu insulin. He was admitted to the medical floor and placed on subcu insulin along with aggressive IV fluids and a diabetic diet. His VEGA rapidly resolved. He was placed on basal insulin initially once daily and then increase to 35 units twice daily with improved blood sugars however not yet at goal. He was also placed on prandial insulin ultimately a 20 units 3 times daily. We did not want to be too aggressive because I do not want him having any hypoglycemic episodes at home so my plan is for outpatient follow-up with Dr. Walker hopefully in the next month and he is to keep track of his blood sugars 4 times daily. Once in the morning upon awakening, once prior to lunch, once prior to dinner and once prior to bedtime. Blood pressures were ranging anywhere from 130s to 140s systolic so we did add low-dose lisinopril 2.5 mg daily for BP and renal protection as well as low-dose metoprolol due to some persistent tachycardia which appears to be a chronic problem at 12.5 mg p.o. twice daily. Prescriptions for his insulin and antihypertensives were sent to local pharmacy prior to discharge. Pen needles were also sent. He and his parents were given education by the dietitian as well as written education with regards to diabetes and instructed extensively in insulin dosing and how to inject. It is currently noted that he is does not have a primary care physician and we have asked that follow-up with the primary care physician be pursued in the next 1 to 2 weeks if possible. I have also asked that he follow-up with a tester rocket engine, Dr. Yosef Walker, and they are to call to set up appointment to be seen within the next month if possible. Discharge diagnoses: New onset [id number] VEGA-resolved Hypokalemia-replaced Elevated blood pressure Constipation Morbid obesity Down syndrome Physical Exam Const alert, oriented x3, no apparent distress and well nourished; Negative for average body habitus or healthy appearing Constitutional Narrative: Morbidly obese, Anglican, white male with Down syndrome, lying in bed, appears comfortable, nontoxic, mother and father at bedside General Appearance: cooperative, comfortable, well kempt and well developed Nutritional Appearance: morbidly obese HEENT normocephalic, head/scalp atraumatic, hearing grossly normal bilaterally, moist oral mucous membranes and oropharynx normal HEENT Narrative: Mallampati 4 Eyes PERRL and conjunctivae normal Eyes Narrative: No scleral icterus Neck supple Neck Narrative: Neck is short and thick, trachea midline Resp normal respiratory effort, no retractions, no use of accessory muscles and clear to auscultation bilaterally Auscultation: Negative for rales, rhonchi or wheezes Cardio regular rate, regular rhythm, S1 normal heart sound, S2 normal heart sound, no murmurs, no rub, no gallops and no clicks GI normal to inspection, nondistended, normoactive bowel sounds, soft to palpation and non-tender GI Narrative: Large protuberant abdomen Extremity no clubbing, cyanosis or edema Extremity Narrative: Pedal pulses are 2+, no cyanosis or clubbing Skin no wounds, skin turgor normal and no jaundice Neuro moves all extremities and no focal motor deficits Psych affect normal Psych Narrative: Very pleasant, interacts appropriately Weight / BMI Weight Weight: 120.3 kg Body Mass Index (BMI) 48.4 ABG / Lab / Microbiology Data 08/03/24 05:48 08/04/24 07:01 Laboratory: Laboratory Results - last 24 hr 08/03/24 17:05: POC Glucose 423 H 08/03/24 21:41: POC Glucose 300 H 08/04/24 07:01: Sodium 136, Potassium 3.4 L, Chloride 103, Carbon Dioxide 26.0, Anion Gap 7, BUN 10, Creatinine 1.18, Estim Creat Clear Calc 107.73, Est GFR (MDRD) Af Amer 95, Est GFR (MDRD) Non-Af 79, BUN/Creatinine Ratio 8.5 L, Glucose 283 H, Calcium 8.7, Phosphorus 3.6, Magnesium 1.8, Total Bilirubin 0.90, AST 36, ALT 34, Alkaline Phosphatase 102, Total Protein 7.2, Albumin 2.9 L, Globulin 4.3 H, Albumin/Globulin Ratio 0.7 L 08/04/24 08:59: POC Glucose 274 H 08/04/24 12:38: POC Glucose 220 H D/C Instructions Discharge Diet: 1800 Calorie Control Diet Discharge Activity: Return to Normal Activity DC O2, CPAP, BIPAP Needs Home O2 Discharge instructions: No DC home with Oxygen: No Meaningful Use Info Meaningful Use Meaningful Use Diagnoses (Choose all that apply): None applicable Ischemic Stroke Statin Dosing Therapy Reference: STATIN DOSE THERAPY REFERENCE: * Patients > 75 years receive moderate or high dose statin therapy. * Patients 75 years or YOUNGER should receive HIGH intensity statin dose unless contraindicated. You will be required to document reason for non-treatment if statin daily dose does not meet guidelines. HIGH DOSE STATIN THERAPY DAILY Atorvastatin > than or = to 40 mg Rosuvastatin > than or = to 20 mg Amlodipine + Atorvastatin > than or = to 2.5/40 mg Ezetimibe + Simvastatin 10/80 mg Simvastatin 80mg Discharge Plan Admission Admit Date/Time: 08/03/24 08:03 Primary Reason for Your Visit: Elevated blood sugar Attending Provider: Damaris Valentine Primary Care Provider: Care Physician,No Primary Consulting Providers: Chasity Collado Instructions Patient Instructions: Diabetes Blood Glucose Check Ch, Diabetes Food Tips Ch, Diabetes Carbs Fats Protein, Diabetes and Illness Additional Instructions / Restrictions: 1. Please follow a carb controlled diet 2. Please check your blood sugars 4 times a day. Please check this as follows: Once before breakfast, once before lunch, once before dinner and once before bedtime. Write these measurements down and take them to your follow-up appointment with the diabetes doctor (Dr. Walker) 3. If Kyle develops nausea and vomiting, hold his Humalog and decrease his glargine from 35 units twice daily to 35 units daily. Continue to check his blood sugars and call the doctor's office if they are high 4. I would highly recommend you find a primary care physician and follow-up in the next 1 to 2 weeks if possible. Discharge Orders/Prescriptions Prescriptions: New insulin glargine-yfgn 100 unit/mL (3 mL) Insulin Pen 35 unit subcut BID Qty: 15 3RF insulin lispro [Humalog KwikPen Insulin] 100 unit/mL Insulin Pen 20 unit subcut TIDAC Qty: 15 0RF lisinopril 2.5 mg Tablet 2.5 mg PO DAILY Qty: 30 0RF metoprolol tartrate 25 mg Tablet 12.5 mg PO BID Qty: 30 0RF (DME) pen needle, diabetic 32 gauge x 1/4 needle See Rx Instructions .Route Qty: 100 3RF Rx Instructions: As directed Referrals / Follow Up: Yosef Walker MD [Med Staff - Courtesy Staff] - Within 1 Month Care Physician,No Primary [Primary Care Provider] - Disposition Disposition (needs filled in before D/C Order can be placed): Home, Self Care Charges/Coding Visit Charges Inpatient E&M: 20478 Disch Hosp >30min
--- NOTE | 2024-08-04 14:31 | NURSING ---
Patient's mother educated on using insulin pen and subcutaneous injections. Patient's mother correctly gave insulin before breakfast and lunch. Patient's mother also gave glargine in the morning. Patient's mother will be educated throughout shift and with discharge instructions.
[2024-08-04 15:17] VITALS: BP 121/78; PULSE 98; RESP 18; TEMP 36.7; O2SAT 99
== END 2024-08-04 15:52 | disposition home or self-care (01) | DRG 638 ==
LOC: ED 14:17 → PCU 14:46
PROVIDERS: Admitting Provider Internal Medicine; Emergency Provider Emergency Medicine; Visit Provider Internal Medicine
DX: E11.10 Type 2 diabetes mellitus with ketoacidosis without coma (principal); Z68.42 Body mass index [BMI] 45.0-49.9, adult; N17.9 Acute kidney failure, unspecified; I48.20 Chronic atrial fibrillation, unspecified; D75.1 Secondary polycythemia; E11.65 Type 2 diabetes mellitus with hyperglycemia; E66.01 Morbid (severe) obesity due to excess calories; E86.0 Dehydration; K59.00 Constipation, unspecified; E87.6 Hypokalemia; Q90.9 Down syndrome, unspecified; Z79.01 Long term (current) use of anticoagulants; R03.0 Elevated blood-pressure reading, without diagnosis of hypertension
CPT/HCPCS: 36415; 71045; 80048; 80053; 80076; 81001; 82009; 82803; 82962; 83036; 83690; 83735; 84100; 85025; 93005; 97802; 99284; A4216

== ENCOUNTER 2024-08-27 09:00 | Emergency (ER) | payer OTHER, SELFPAY ==
[2024-08-27 09:01] VITALS: BP 75/42; PULSE 115; RESP 20; TEMP 37.5; O2SAT 98; O2SAT 99; BMI 50.6
[2024-08-27 09:07] VITALS: BP 140/66
--- NOTE | 2024-08-27 09:18 | EKG12_ITS ---
Test Reason : WEAKNESS Blood Pressure : */* mmHG Vent. Rate : 103 BPM Atrial Rate : 103 BPM P-R Int : 160 ms QRS Dur : 74 ms QT Int : 328 ms P-R-T Axes : 44 31 28 degrees QTcB Int : 429 ms Sinus tachycardia Otherwise normal ECG Confirmed by NICK BECERRA, ISABEL ([id number]), movie editor MOOK MAYA ([id number]) on 08/28/2024 2:02:33 PM Referred By: Confirmed By: ISABEL ROMERO MD
--- NOTE | 2024-08-27 09:18 | RAD_ITS ---
STUDY: X-RAY CHEST REASON FOR EXAM: Male, 29 years old. Fever. TECHNIQUE: Single frontal view of the chest. COMPARISON: August 02, 2024 FINDINGS: Stable low volume inspiration. Scattered granulomatous calcifications unchanged. There is no demonstrated pleural abnormality. Normal size heart. Normal mediastinum and janeen. Normal visualized pulmonary arteries. Normal visualized aortic arch and descending thoracic aorta. No abnormality of the visualized soft tissue structures of the upper abdomen. RAD/Chest 1 View (Portable) IMPRESSION: Stable chest with no acute or active cardiopulmonary disease. Electronically Signed: Jasper Fuentes MD at 11:28 EST ,
--- NOTE | 2024-08-27 09:20 | EX.ED.DYSGE1 ---
HPI History of Present Illness Chief Complaint: Weakness Narrative Narrative: 29-year-old male past medical history of Down syndrome, brought in by his parents because of near syncope and looking pale about an hour and a half ago while he was waiting for roman catholic. They state that patient had a near syncopal episode and appeared pale to them. He later told them that he did not feel well last night. No noted recent nausea or vomiting, no diarrhea, no fevers or chills. However, patient is newly diagnosed with diabetes last month. They state that he may have gotten too much insulin. They gave the long-acting insulin as they were directed, 35 units of Lantus in the evening and in the morning. They also give 20 units of KwikPen prior to meals. They state that the patient did not eat a full breakfast this morning but he did have coffee and a cookie. [facility] Medical History Diabetes Trisomy 21 Home Medications ?Medication ?Instructions ?Recorded ?Last Taken ?Type insulin glargine-yfgn 100 unit/mL 35 unit (0.35 mL) subcut BID #15 mL 08/04/24 Unknown Rx (3 mL) subcutaneous pen insulin lispro 100 unit/mL 20 unit (0.2 mL) subcut TIDAC #15 08/04/24 Unknown Rx subcutaneous pen (Humalog KwikPen mL (U-100) Insulin) lisinopril 2.5 mg tablet 2.5 mg PO DAILY #30 tabs 08/04/24 Unknown Rx metoprolol tartrate 25 mg tablet 12.5 mg (1/2 x 25 mg) PO BID #30 08/04/24 Unknown Rx tabs pen needle, diabetic 32 gauge x #100 ea 08/04/24 Unknown Rx 1/4 Allergy/AdvReac Type Severity Reaction Status Date / Time No Known Allergies Allergy Verified 08/27/24 09:01 Social History Smoking Status: Never smoker ROS ROS ED ROS Narrative Limited secondary to Down syndrome. Obtained from parents. Constitutional: No fever, no chills. Positive malaise. HEENT: No sore throat. No neck pain. No loss of vision. No rhinorrhea. Cardiovascular: No chest pain. No palpitations. No pedal edema. Respiratory: No cough, no shortness of breath. Abdominal: No abdominal pain. No nausea. No vomiting. Genitourinary: No dysuria. No hematuria. Musculoskeletal: No myalgias. No arthralgias. Neurologic: No headaches. No dizziness. Positive lightheadedness and near syncope. Skin: No rash. Positive pallor. Psychiatric: No depression. No anxiety. EXAM Physical Exam Narrative Exam Narrative: Temperature 99.5 ?F. Vital signs noted. Initially hypotensive at 75/42, but then increased to 140/66. General appearance consistent with trisomy 21. Cardiovascular examination reveals mild tachycardia. Lungs are clear to auscultation bilaterally. Abdomen soft and nontender. Positive bowel sounds. Neurological examination nonfocal. Const Vital Signs: 08/27/24 09:01 08/27/24 09:07 08/27/24 09:08 Temperature 99.5 F H Temperature Source Oral Pulse Rate 115 H Respiratory Rate 20 H Respiratory Effort Normal Non-Labored Respiratory Pattern Normal Blood Pressure 75/42 L 140/66 H Blood Pressure Mean 53 90 Pulse Ox 99 Oxygen Delivery Method Room Air 08/27/24 11:00 Temperature Temperature Source Pulse Rate 112 H Respiratory Rate 17 Respiratory Effort Respiratory Pattern Blood Pressure 119/66 Blood Pressure Mean 83 Pulse Ox 95 Oxygen Delivery Method Room Air MDM MDM MDM Narrative Medical decision making narrative: Differential diagnosis does include transient hypoglycemia versus dehydration versus other electrolyte abnormality versus intravascular volume depletion. Given his low-grade fever, source of infection will be investigated including pneumonia versus urinary tract infection. DKA rule out will also be obtained. EKG was obtained and interpreted by myself independently as sinus tachycardia at 103 bpm without ectopy or acute ST changes. No STEMI. I reviewed his laboratory work and he has slightly elevated white count of 11.2 which I think is nonspecific, normal hemoglobin of 14.6, hematocrit 43.7. Platelet count normal at 240. Electrolyte panel is grossly unremarkable with glucose elevated appropriately at 99. LFTs are slightly elevated at 84 and 77 which I think is nonspecific. Acetone level is negative so I doubt diabetic ketoacidosis and he has a normal blood sugar here. After eating a snack, hbosx-yu-yfha glucose 125. Chest x-ray in 1 view interpreted by myself independently shows no evidence of pneumonia or pneumothorax. I reviewed the radiology report which confirms my independent interpretation. I do not feel antibiotics are indicated. Of note, COVID swab is positive. After eating multiple snacks, his blood sugar will be checked. He may have had a transient drop in his glucose, and once again his parents state that he did not eat much except for madeline crackers and coffee after being given both doses of insulin. At this point in time, they were told that he should eat a full meal before given any insulin/eat shortly thereafter. I feel he can be discharged to follow-up with his primary care provider. Return instructions to the emergency department were reviewed. Disposition is discharged in stable condition. History & Record Review Discussion w/independent historian: Family Lab Data Attestation: I reviewed the patient's lab results. Labs: Laboratory Results - last 24 hr 08/27/24 08/27/24 09:38 11:05 WBC 11.2 H RBC 4.26 L Hgb 14.6 Hct 43.7 MCV 102.6 H MCH 34.3 H MCHC 33.4 RDW Std Deviation 54.4 H RDW Coeff of Ivan 14.4 Plt Count 240 MPV 9.5 Immature Gran % (Auto) 0.700 Neut % (Auto) 75.6 H Lymph % (Auto) 16.0 L [place] % (Auto) 7.0 Eos % (Auto) 0.0 Baso % (Auto) 0.7 Absolute Neuts (auto) 8.5 H Absolute Lymphs (auto) 1.79 Nucleated RBC % 0 Sodium 136 Potassium 3.7 Chloride 102 Carbon Dioxide 29.0 Anion Gap 5 BUN 15 Creatinine 1.27 Estim Creat Clear Calc 102.57 Est GFR (MDRD) Af Amer 87 Est GFR (MDRD) Non-Af 72 BUN/Creatinine Ratio 11.8 Glucose 99 Calcium 8.9 Total Bilirubin 0.80 AST 84 H ALT 77 H Alkaline Phosphatase 75 Total Protein 7.4 Albumin 3.1 L Globulin 4.3 H Albumin/Globulin Ratio 0.7 L Acetone Level NEGATIVE POC Glucose 125 H Radiography Diagnostic Testing: Clinical Impression(s) from Imaging Studies Chest X-Ray 08/27/24 09:18 IMPRESSION: Stable chest with no acute or active cardiopulmonary disease. Electronically Signed: Jasper Fuentes MD at 11:28 EST , Discharge Plan Triage Chief Complaint: Weakness ED Provider: Issa Salcido Dx/Rx/DC Orders Clinical Impression: COVID, Near syncope, History of diabetes mellitus Instructions: Coronavirus Disease 2019 (COVID-19): Caring for Yourself or Others, ED Near-Fainting, Uncertain Cause, ED Weakness (Uncertain Cause) Prescriptions: No Action insulin glargine-yfgn 100 unit/mL (3 mL) Insulin Pen 35 unit subcut BID Qty: 15 3RF insulin lispro [Humalog KwikPen Insulin] 100 unit/mL Insulin Pen 20 unit subcut TIDAC Qty: 15 0RF lisinopril 2.5 mg Tablet 2.5 mg PO DAILY Qty: 30 0RF metoprolol tartrate 25 mg Tablet 12.5 mg PO BID Qty: 30 0RF (DME) pen needle, diabetic 32 gauge x 1/4 needle See Rx Instructions .Route Qty: 100 3RF Rx Instructions: As directed Primary Care Provider: Care Physician,No Primary Referrals: Care Physician,No Primary [Primary Care Provider] - Activity Restrictions/Additional Instructions: Make sure you are eating a full meal before taking your insulin, especially in the morning as you are taking both long-acting and short acting insulins. Return with new or worsening symptoms. Print Language: Citizen Of [place] Disposition Disposition: Home, Self Care
[2024-08-27 09:48] LABS: Absolute Lymphocyte Count 1.79 X10^3/uL (0.83-4.51); Absolute Neutrophil Count 8.5 X10^3/uL (2.0-7.7); Basophil# 0.08 X10^3/uL; Basophil% 0.7 % (0-1); Hematocrit 43.7 % (40-54); Hemoglobin 14.6 g/dL (13.0-16.5); Lymphocyte # 1.79 X10^3/ul (0.83-4.51); Mean Corp Hgb Conc 33.4 g/dL (32-36); Mean Corpuscular Hgb 34.3 pg (27.0-32.0); Mean Corpuscular Volume 102.6 fL (80-94); Mean Platelet Vol. 9.5 fl (6.2-12.0); Monocyte# 0.79 X10^3/uL; NRBC Flagged by Analyzer 0 % (0-5); Neutrophil # 8.48 X10^3/uL (2.7-7.7); Neutrophil % 75.6 % (47-70); Platelet Count 240 K/mm3 (150-450); RBC Distribution Width CV 14.4 % (11.6-14.6); RBC Distribution Width SD 54.4 fl (35.1-43.9); Red Blood Count 4.26 M/mm3 (4.6-6.2); White Blood Count 11.2 K/mm3 (4.4-11.0)
[2024-08-27 10:00] LABS: ALB/GLOB Ratio 0.7 RATIO (0.9-2.4); AST(SGOT) 84 U/L (15-37); Alanine Aminotransfer ALT/SGPT 77 U/L (16-61); Albumin, Serum 3.1 g/dL (3.2-5.0); Alkaline Phosphatase 75 U/L (45-117); Anion Gap 5 (5-15); BUN 15 mg/dL (7-18); BUN/Creat Ratio 11.8 RATIO (10-20); Calcium,Total 8.9 mg/dL (8.5-10.1); Chloride 102 mmol/L (98-107); Creatinine, Serum 1.27 mg/dL (0.70-1.30); EST Glomerular Filtration Rate 72 mL/min (>60); Est Glom Filt Rate - Afr Amer 87 mL/min (>60); Estimated Creatinine Clearance 102.57 ml/min; Globulin 4.3 g/dL (2.2-4.2); Glucose 99 mg/dL (74-106); Potassium 3.7 mmol/L (3.5-5.1); Protein, Total 7.4 g/dL (6.4-8.2); Sodium Level 136 mmol/L (136-145)
[2024-08-27] MEDS: 0.9% Normal Saline (1000mL) 1,000 ML 999 ML IV (10:13)
[2024-08-27 11:00] VITALS: BP 119/66; PULSE 112; RESP 17; O2SAT 95
[2024-08-27 11:24] LABS: Bedside Glucose 125 mg/dL (74-106)
[2024-08-27 13:00] VITALS: RESP 16; O2SAT 98
[2024-08-27 13:26] LABS: Bedside Glucose 171 mg/dL (74-106)
[2024-08-27 13:43] VITALS: BP 119/66; PULSE 112; RESP 16; TEMP 37.5; O2SAT 98
[2024-08-28 17:51] LABS: Bedside Glucose 106 mg/dL (74-106)
== END 2024-08-27 13:43 | disposition home or self-care (01) ==
PROVIDERS: Emergency Provider Emergency Medicine; Visit Provider Emergency Medicine
DX: U07.1 COVID-19 (principal); E11.9 Type 2 diabetes mellitus without complications; Z79.4 Long term (current) use of insulin; I95.9 Hypotension, unspecified; R55 Syncope and collapse; Q90.9 Down syndrome, unspecified; Z79.899 Other long term (current) drug therapy
CPT/HCPCS: 71045; 80053; 82009; 82962; 85025; 87631; 93005; 96360; 96361; 99285; A4216